=== PATIENT | female | born 1955 | race Caucasian/White ===

== ENCOUNTER 2018-04-11 10:49 | Emergency (ER) | payer OTHER, SELFPAY ==
[2018-04-11 10:58] VITALS: BP 187/116; PULSE 145; RESP 20; TEMP 36.9; O2SAT 100; BMI 26.1
--- NOTE | 2018-04-11 11:03 | ED.ARRPALP ---
HPI - Arrhythmia/Palpitations General Chief Complaint: Arrhythmia/Palpitations Stated Complaint: RACING HEART Time Seen by Provider: 04/11/18 10:59 Source: patient Mode of arrival: ambulatory Limitations: no limitations History of Present Illness HPI narrative: 63-year-old female sent over from her primary care doctor's office after during the evaluation the patient became acutely tachycardic. Patient states that she has never felt anything like this before. She states that she was sitting on the exam table in when her provider went to listen to her heart she felt like her heart started to race. Denies any chest pain. Denied any shortness of breath. States she was still having the symptoms at the time of my evaluation. No new medications. Related Data Home Medications Medication Instructions Recorded Confirmed No Known Home Medications 04/11/18 04/11/18 Allergies Allergy/AdvReac Type Severity Reaction Status Date / Time Penicillins Allergy Unknown Verified 04/11/18 11:14 hay fever Allergy Mild Uncoded 04/11/18 09:29 Review of Systems Constitutional Denies chills, Denies fatigue, Denies fever(s), Denies headache(s), Denies lethargy and Denies weakness ENT Ears, Nose, Mouth, and Throat: Denies vertigo, Denies dizziness and Denies headache(s) Cardiovascular Denies chest pain, Denies syncope, Denies irregular heart rhythm, Denies lightheadedness, Reports palpitations, Denies dyspnea and Denies dyspnea on exertion Respiratory Denies cough, Denies dyspnea, Denies dyspnea on exertion and Denies wheezing Gastrointestinal Gastrointestinal: Denies abdominal pain, Denies change in bowel habits, Denies diarrhea, Denies nausea and Denies vomiting Musculoskeletal Denies back pain, Denies muscle weakness, Denies numbness and Denies tingling Integumentary/Breasts Denies pruritus, Denies erythema, Denies rash and Denies wounds Neurologic Denies confusion, Denies vertigo, Denies dizziness, Denies syncope, Denies headache(s), Denies numbness, Denies tingling and Denies weakness Psychiatric Denies confusion Endocrine Denies fatigue, Denies flushing and Reports palpitations Hematologic/Lymphatic Denies easy bruising Allergic/Immunologic Denies wheezing [facility] Social History Smoking Status: Never smoker Exam Initial Vital Signs Initial Vital Signs: Vital Signs Temperature 98.5 F 04/11/18 10:58 Pulse Rate 145 H 04/11/18 10:58 Respiratory Rate 20 04/11/18 10:58 Blood Pressure 187/116 H 04/11/18 10:58 Pulse Oximetry 100 04/11/18 10:58 Resp Effort & Inspection: normal respiratory effort, able to speak in complete sentences, no respiratory distress and no use of accessory muscles Auscultation: clear to auscultation bilaterally, no rales, no rhonchi and no wheezes Cardio Rate: tachycardic Rhythm: regular rhythm Pulses: radial pulses present GI Inspection: non-distended Palpation: soft, no hepatosplenomegaly, No guarding, No pulsatile mass and No tender Auscultation: normal bowel sounds Skin General: no rashes or lesions noted, No jaundice and No petechiae Extrem General: full ROM, no clubbing, cyanosis or edema, no pedal edema and no calf tenderness Course Orders Ordered: ED Orders 04/11/18 11:04 XR chest 1V Stat EKG-12 Lead Stat 04/11/18 11:25 B Type Natriuretic Peptide Stat Complete Blood Count AUTO DIFF Stat Comprehensive Metabolic Panel Stat Lipase Stat Troponin I Stat 04/11/18 11:43 EKG-12 Lead Stat Discontinued Medications Sodium Chloride (Normal Saline 0.9%) 1,000 mls @ 1,000 mls/hr IV BOLUS ONE Stop: 04/11/18 12:03 Last Admin: 04/11/18 12:02 Dose: Vital Signs - 8 hr 04/11/18 12:06 04/11/18 13:22 Pulse Rate 84 99 H Respiratory Rate 12 21 Blood Pressure 123/78 H Blood Pressure [Left Arm] 110/84 H Pulse Oximetry 97 100 MDM - Arrhythmia/Palpitations Lab Data Attestation: I reviewed the patient's lab results. Result diagrams: 04/11/18 11:25 04/11/18 11:25 Lab Results 04/11/18 04/11/18 Range/Units 11:25 11:25 WBC 5.7 (4.5-11.0) X10^3/uL RBC 4.27 (4.0-5.2) X10^6/uL Hgb 14.0 (12.0-16.0) g/dL Hct 39.9 (36-46) % MCV 93.3 (80-100) fL MCH 32.7 (26-34) PG MCHC 35.0 (30-36) % RDW 11.7 (11.6-14.8) % Plt Count 199 (150-400) X10^3/uL Neut % (Auto) 61.9 (50-75) % Lymph % (Auto) 30.4 (25-40) % Allen % (Auto) 6.3 (3-14) % Eos % (Auto) 0.9 L (2-4) % Baso % (Auto) 0.5 (0-2) % Neut # (Auto) 3500 (2404-6291) /uL Sodium 143 (137-145) mmol/L Potassium 3.9 (3.4-5.1) mmol/L Chloride 104.0 (98-107) mmol/L Carbon Dioxide 27.0 (22-32) mmol/L BUN 14.0 (7-17) mg/dL Creatinine 0.80 (0.52-1.04) mg/dL Estimated GFR > 60.0 (>60) mL/min BUN/Creatinine Ratio 17.5 (6-22) Glucose 103 (80-110) mg/dL Calcium 9.7 (8.4-10.2) mg/dL Total Bilirubin 0.8 (0.2-1.3) mg/dL AST 27 (14-36) IU/L ALT 28 (9-52) IU/L Alkaline Phosphatase 72 (38-126) U/L Troponin I < 0.012 (0.01-0.034) ng/mL B-Natriuretic Peptide 33.3 (<100) Total Protein 7.6 (6.3-8.2) g/dL Albumin 4.5 (3.5-5.0) g/dL Globulin 3.1 (1.7-4.1) g/dL Albumin/Globulin Ratio 1.5 (1.0-2.8) Lipase 173 (23-300) U/L Imaging Data Chest x-ray: Radiologist's impression: PROCEDURE: XR CHEST 1V INDICATIONS: Palpitations TECHNIQUE: One view of the chest was acquired. COMPARISON: None. FINDINGS: Surgical changes and devices: None. Lungs and pleura: No pleural effusions or pneumothorax. Lungs are clear. Mediastinum: Mediastinal contours appear normal. Heart size is normal. Bones and chest wall: No suspicious bony lesions. Overlying soft tissues appear unremarkable. IMPRESSION: No acute cardiopulmonary abnormality ECG Data Attestation: I personally reviewed and interpreted this ECG as follows: Prior ECG tracings: not available for review Interpretation: EKG dated 1054 hr Sinus tachycardia Ventricular rate of 142 Normal axis Normal intervals Normal QRS Normal QTC Nonspecific ST T wave changes EKG timed 1149 hr Sinus rhythm Ventricular rate 84 Normal axis Normal intervals Normal QRS No ST T wave changes MDM Narrative Medical decision making narrative: Patient was asymptomatic except for the palpitations. Initially was tachycardic appears to be regular. Patient otherwise healthy. While here in the emergency department patient states that her symptoms gradually improved to the point that her heart rate was less than 80. Repeat EKG shows sinus rhythm. Electrolytes unremarkable. Chest x-ray unremarkable. Initial EKG somewhat concerning for atrial flutter however this is not definitive. Had a long discussion with patient regarding her symptoms. She was given a copy of her EKG is. She was instructed to contact her primary doctor for a follow-up to discuss the indication for further evaluation to include an echocardiogram and stress test. She was given return precautions. She expressed understanding and agreement with plan Discharge Plan Departure Patient Disposition: Home, Self-Care Clinical Impression: Palpitations Discharge Date/Time: 04/11/18 13:23 Interventions: ED Discharge Assessment Last Done: 04/11/18 13:22 Instructions: DI for Palpitations Activity Restrictions/Additional Instructions: Recommend that you follow up with her primary care doctor to discuss the indications for further evaluation to include an echocardiogram and stress test and potentially follow up with a microbiology technician. Return to the emergency department for any new symptoms, lightheadedness, chest pain, shortness of breath, or any other concerning symptoms Prescriptions: No Action No Known Home Medications RF: 0
--- NOTE | 2018-04-11 11:04 | DI.RAD.S_ITS ---
PROCEDURE: XR CHEST 1V INDICATIONS: Palpitations TECHNIQUE: One view of the chest was acquired. COMPARISON: None. FINDINGS: Surgical changes and devices: None. Lungs and pleura: No pleural effusions or pneumothorax. Lungs are clear. Mediastinum: Mediastinal contours appear normal. Heart size is normal. Bones and chest wall: No suspicious bony lesions. Overlying soft tissues appear unremarkable. IMPRESSION: No acute cardiopulmonary abnormality Dictated by: Joe Hurt M.D. on 04/11/2018 at 11:31 Approved by: Joe Hurt M.D. on 04/11/2018 at 11:31
[2018-04-11 11:26] VITALS: BP 135/87; PULSE 86; RESP 14; O2SAT 99
[2018-04-11 11:39] LABS: Add Manual Diff / Slide Review NO; Basophils Percent Auto 0.5 % (0-2); Eosinophils Percent Auto 0.9 % (2-4); Hematocrit 39.9 % (36-46); Lymphocytes Percent Auto 30.4 % (25-40); Mean Corpuscular Hemoglobin 32.7 PG (26-34); Mean Corpuscular Volume 93.3 fL (80-100); Monocytes Percent Auto 6.3 % (3-14); Neutrophils Absolute Auto 3500 /uL (3000-5900); Neutrophils Percent Auto 61.9 % (50-75); Platelet Count 199 X10^3/uL (150-400); Red Blood Cell Count 4.27 X10^6/uL (4.0-5.2); Red Cell Distribution Width 11.7 % (11.6-14.8); White Blood Cell Count 5.7 X10^3/uL (4.5-11.0)
[2018-04-11 11:50] LABS: Alanine Aminotransferase 28 IU/L (9-52); Albumin 4.5 g/dL (3.5-5.0); Albumin Globulin Ratio 1.5 (1.0-2.8); Alkaline Phosphatase 72 U/L (38-126); Aspartate Aminotransferase 27 IU/L (14-36); BUN Creatinine Ratio 17.5 (6-22); Bilirubin Total 0.8 mg/dL (0.2-1.3); Calcium 9.7 mg/dL (8.4-10.2); Estimated Glomerular Filt Rate > 60.0 mL/min (>60); Globulin 3.1 g/dL (1.7-4.1); Glucose 103 mg/dL (80-110); HEMOLYSIS < 15 (0-50); Lipase 173 U/L (23-300); Potassium 3.9 mmol/L (3.4-5.1); Sodium 143 mmol/L (137-145); Total Protein 7.6 g/dL (6.3-8.2)
[2018-04-11 11:59] LABS: B Type Natriuretic Peptide 33.3 (<100)
[2018-04-11 12:03] LABS: Troponin I < 0.012 ng/mL (0.01-0.034)
[2018-04-11 12:06] VITALS: BP 110/84; PULSE 84; RESP 12; O2SAT 97
[2018-04-11 13:22] VITALS: BP 123/78; PULSE 99; RESP 21; O2SAT 100
== END 2018-04-11 13:23 | disposition home or self-care (01) ==
PROVIDERS: Emergency Provider Emergency Medicine; PCP Family Medicine
DX: R00.2 Palpitations (principal)
CPT/HCPCS: 36415; 36591; 71045; 80053; 83690; 83880; 84484; 85025; 93005; 93041; 99283; 99285

== ENCOUNTER → 2022-03-19 06:32 | Outpatient (CLI) | payer OTHER, SELFPAY ==
[2022-03-19 08:23] LABS: Add Manual Diff / Slide Review NO; Basophils Absolute Auto 0 /uL (0-100); Basophils Percent Auto 0.5 % (0-2); Eosinophils Absolute Auto 100 /uL (0-450); Hematocrit 37.6 % (36-46); Hemoglobin 13.1 g/dL (12.0-16.0); Lymphocytes Absolute Auto 1500 /uL (1100-4500); Lymphocytes Percent Auto 37.1 % (25-40); Mean Corpuscular HGB Conc 34.8 % (30-36); Mean Corpuscular Hemoglobin 32.4 PG (26-34); Mean Corpuscular Volume 93.2 fL (80-100); Monocytes Absolute Auto 300 /uL (0-900); Monocytes Percent Auto 6.6 % (3-14); Neutrophils Absolute Auto 2200 /uL (1500-7000); Neutrophils Percent Auto 53.8 % (50-75); Platelet Count 264 X10^3/uL (150-400); Red Blood Cell Count 4.04 X10^6/uL (4.0-5.2); Red Cell Distribution Width 11.7 % (11.6-14.8); White Blood Cell Count 4.1 X10^3/uL (4.5-11.0)
[2022-03-19 08:35] LABS: Alanine Aminotransferase 30 IU/L (<35); Albumin Globulin Ratio 1.4 (1.0-2.8); Alkaline Phosphatase 81 U/L (38-126); Aspartate Aminotransferase 29 IU/L (14-36); BUN Creatinine Ratio 16.9 (6-22); Bilirubin Total 0.6 mg/dL (0.2-1.3); Blood Urea Nitrogen 13 mg/dL (7-17); Calcium 9.3 mg/dL (8.4-10.2); Carbon Dioxide 28 mmol/L (22-32); Chloride 104 mmol/L (98-107); Cholesterol 232 mg/dL (140-199); Estimated Glomerular Filt Rate > 60 mL/min (>60); Globulin 2.8 g/dL (1.7-4.1); Glucose 93 mg/dL (80-110); HDL Cholesterol 46 mg/dL (40-60); HEMOLYSIS < 15 (0-50); LDL Cholesterol Calculated 166 mg/dL (<100); Potassium 4.4 mmol/L (3.4-5.1); Sodium 141 mmol/L (137-145); Total Protein 6.8 g/dL (6.3-8.2); Triglycerides 101 mg/dL (35-150)
[2022-03-19 09:05] LABS: TSH w/ Reflex to FT4 2.47 uIU/mL (0.47-4.68)
== END ==
PROVIDERS: PCP Family Medicine; Referring Provider Family Medicine; Visit Provider Family Medicine
DX: Z00.00 Encounter for general adult medical examination without abnormal findings (principal); K63.5 Polyp of colon; Z13.220 Encounter for screening for lipoid disorders; Z13.6 Encounter for screening for cardiovascular disorders; R53.83 Other fatigue
CPT/HCPCS: 36415; 80053; 80061; 84443; 85025

== ENCOUNTER → 2022-04-22 09:09 | Outpatient (CLI) | payer MEDICARE, OTHER, SELFPAY ==
[2022-04-22 10:19] LABS: COVID19 -Nasal RAPID Negative (Negative)
== END ==
PROVIDERS: PCP Family Medicine; Visit Provider Surgery
DX: Z20.822 Contact with and (suspected) exposure to COVID-19 (principal); Z01.812 Encounter for preprocedural laboratory examination
CPT/HCPCS: 87635; C9803

== ENCOUNTER 2022-04-23 11:39 | Day surgery (SDC) | payer MEDICARE, OTHER, SELFPAY ==
[2022-04-23 11:51] VITALS: BP 156/92; PULSE 103; RESP 16; TEMP 37.3; O2SAT 99; BMI 24.2
[2022-04-23] MEDS: LACTATED RINGERS 1,000 ML 200 ML IV (11:57)
--- NOTE | 2022-04-23 12:18 | PM.HP.1 ---
History of Present Illness History of Present Illness Date Patient Seen: 04/23/22 Time Patient Seen: 12:18 Chief complaint: SCREENING COLONOSCOPY Narrative: Smita is a 67-year-old woman who is due for colonoscopy. She believes her last colonoscopy was about 12 years ago and polyps were removed. She has no known family history of colon cancer. Patient History Medical History (Updated 04/23/22 @ 12:19 by Hua Sood MD) Allergic rhinitis Cataracts, bilateral (2017) Chickenpox Chronic back pain Colon polyps (2008) Fibroids (2007) Fractures (~2007) History of melanoma (~2009) Irregular heart beat (~2018) Measles Melanoma (2009) Mumps Preventative health care Vitreous floaters of both eyes Surgical History (Updated 04/21/22 @ 21:43 by Sarah Johnson) Anesthesia History of lumpectomy of left breast (~1989) History of removal of skin mole History of surgery Hx of hysterectomy (2007) Family & Social History Family History (Updated 04/21/22 @ 21:44 by Sarah Johnson) Father Hypertension Bladder cancer Mother Heart disease Dementia Mental health problem Social History: household members spouse Tobacco & Substance use: Smoking Status Never smoker alcohol intake frequency a few times a month Substance Use Type does not use Meds Home Medications and Allergies Home Medications Medication Instructions Recorded Confirmed Type pravastatin 20 mg tablet 20 mg PO DAILY #90 tab 04/03/22 04/23/22 Rx sodium sul 1.479 gram-potas ch See Rx Instructions PO PER PKG DIR 04/06/22 Rx 0.188 gram-magnes sul 0.225 gram #24 tab tablet (Sutab) Allergies Allergy/AdvReac Type Severity Reaction Status Date / Time Penicillins Allergy Unknown Verified 03/18/22 09:57 hay fever Allergy Mild Uncoded 03/18/22 09:57 Exam Vital Signs (past 8 hours): - 04/23/22 11:51 Temperature 99.1 F Pulse Rate 103 H Respiratory Rate 16 Blood Pressure 156/92 H Pulse Oximetry 99 Oxygen Delivery Method Room Air Const General: healthy appearing Resp Effort & Inspection: normal respiratory effort Assessment & Plan Assessment and plan (1) History of colon polyps: Status: Acute Plan 67-year-old woman with a history of colon polyps. We reviewed the risks, benefits and rationale of colonoscopy for colon cancer screening. She would like to proceed. COVID-19 COVID-19 status: Negative Result date/Date tested (Pos, Neg/Pending): 04/22/22 Time Spent With Patient Critical Care time: I spent a total of [] minutes of critical care time on this patient's care today; this time is exclusive of procedural time.
[2022-04-23] MEDS: MIDAZOLAM 5 MG/5 ML VIAL 8 MG IV (12:45)
[2022-04-23] MEDS: fentaNYL 250 MCG/5 ML INJ 200 MCG IV (12:45)
--- NOTE | 2022-04-23 12:51 | PM.OP.COLON ---
Operative Date/Time/Diagnoses Date of procedure: 04/23/22 Time of procedure: 12:51 Pre-op diagnosis: Personal history of colon polyps Post-op diagnosis: same Procedure & Clinicians Study performed: Colonoscopy Same procedure as scheduled: Yes Procedure Notes Procedure in detail: Surgeon: Hua Sood MD Procedure: The patient was brought to the endoscopy suite, placed in left lateral decubitus position. The patient was connected to monitoring devices. A time-out was performed. Sedation was administered. Once the patient was adequately sedated, a digital rectal exam was performed and was normal. The scope was then inserted and advanced to the cecum where the appendiceal orifice was identified and photographed. The scope was then slowly withdrawn over greater than 6 minutes. Mucosa was thoroughly inspected. There were no polyps. There was air multiple diverticula of the left colon greatest in the sigmoid colon. The scope was retroflexed in the rectum. There were internal hemorrhoids but no other abnormalities. The scope was straightened and removed. The patient was awakened and brought to recovery. Versed: 8 mg Fentanyl: 200 mcg EBL: 0 Findings: Diverticulosis, greatest in the sigmoid colon Scope withdrawal time: 8 Sedation minutes: 22 Post-procedure Recommendations: Colonoscopy in 10 years Disposition: PACU
[2022-04-23 12:54] VITALS: BP 100/68; PULSE 75; RESP 16; TEMP 36.7; O2SAT 95
[2022-04-23 13:00] VITALS: BP 106/66; PULSE 72; RESP 16; TEMP 36.8; O2SAT 98
[2022-04-23 13:05] VITALS: BP 110/70; PULSE 78; RESP 16; TEMP 36.8; O2SAT 98
== END 2022-04-23 13:30 | disposition home or self-care (01) ==
PROVIDERS: PCP Family Medicine; Referring Provider Surgery; Visit Provider Surgery
PROC: 0DJD8ZZ Inspection of Lower Intestinal Tract, Via Natural or Artificial Opening Endoscopic (ICD-10-PCS; CPT 45378; principal; 2022-04-23 12:45)
DX: Z12.11 Encounter for screening for malignant neoplasm of colon (principal); Z86.010 Personal history of colon polyps; K57.30 Diverticulosis of large intestine without perforation or abscess without bleeding; K64.8 Other hemorrhoids
CPT/HCPCS: G0105; 99152; J2250; J3010

== ENCOUNTER → 2022-09-03 06:39 | Outpatient (CLI) | payer MEDICARE, OTHER, SELFPAY ==
[2022-09-03 08:37] LABS: Alanine Aminotransferase 30 IU/L (<35); Albumin 4.3 g/dL (3.5-5.0); Albumin Globulin Ratio 1.5 (1.0-2.8); Alkaline Phosphatase 49 U/L (38-126); Aspartate Aminotransferase 31 IU/L (14-36); Bilirubin Total 1.2 mg/dL (0.2-1.3); Blood Urea Nitrogen 17 mg/dL (7-17); Calcium 9.5 mg/dL (8.4-10.2); Carbon Dioxide 29 mmol/L (22-32); Chloride 103 mmol/L (98-107); Cholesterol 266 mg/dL (140-199); Estimated Glomerular Filt Rate > 60 mL/min (>60); Globulin 2.8 g/dL (1.7-4.1); Glucose 96 mg/dL (80-110); HDL Cholesterol 74 mg/dL (40-60); HEMOLYSIS 18 (0-50); LDL Cholesterol Calculated 175 mg/dL (<100); Sodium 137 mmol/L (137-145); Total Protein 7.1 g/dL (6.3-8.2); Triglycerides 85 mg/dL (35-150)
== END ==
PROVIDERS: PCP Family Medicine; Referring Provider Family Medicine; Visit Provider Family Medicine
DX: E78.00 Pure hypercholesterolemia, unspecified (principal)
CPT/HCPCS: 36415; 80053; 80061

== ENCOUNTER → 2022-09-24 11:31 | Outpatient (CLI) | payer MEDICARE, OTHER, SELFPAY ==
--- NOTE | 2022-09-24 11:33 | DI.MG.S_ITS ---
BILATERAL DIGITAL SCREENING MAMMOGRAM 3D/2D WITH CAD: 09/24/2022 CLINICAL: Routine screening. Comparison is made to exams dated: 10/25/2009 mammogram and 10/05/2008 mammogram - [facility]. Both breasts are heterogeneously dense, which may obscure small masses (category c / 51-75% glandular tissue). Current study was also evaluated with a Computer Aided Detection (CAD) system. No significant masses, calcifications, or other findings are seen in either breast. There has been no significant interval change. IMPRESSION: NEGATIVE There is no mammographic evidence of malignancy. A 1 year screening mammogram is recommended. Based on the Tyrer Cuzick model (a risk assessment model) the patient's lifetime risk is 10.8% and her 10 year risk is 5.3%. According to the ACR, ACS, and NCCN guidelines, an annual breast MRI exam along with mammogram is recommended if the patient's lifetime risk is 20% or greater. This exam was interpreted at Station ID: [id number]. NOTE: For mammograms, a report in lay terms will be sent to the patient. Approximately 15% of breast malignancies will not be visualized mammographically. In the management of a palpable breast mass, a negative mammogram must not discourage biopsy of a clinically suspicious lesion. Electronically Signed By: Akhli Plasencia M.D., jr/maday:09/24/2022 18:00:51 letter sent: Normal Exam ACR BI-RADS Category 1: Negative [id number]
== END ==
PROVIDERS: PCP Family Medicine; Referring Provider Family Medicine; Visit Provider Family Medicine
DX: Z12.31 Encounter for screening mammogram for malignant neoplasm of breast (principal)
CPT/HCPCS: 77063; 77067

== ENCOUNTER 2022-12-28 03:22 | Emergency (ER) | payer MEDICARE, OTHER, SELFPAY ==
[2022-12-28 03:30] VITALS: BP 169/83; PULSE 95; RESP 18; TEMP 36.8; O2SAT 98; BMI 24.2
--- NOTE | 2022-12-28 03:38 | ED.GENADULT ---
HPI - General Adult General Chief complaint: Extremity Injury, Upper Stated complaint: lacerations rt arm from fall Time Seen by Provider: 12/28/22 03:34 History of Present Illness HPI narrative: 67-year-old woman with a history of hyperlipidemia returning from [place] and vacation was checking into a hotel on mechanical fall and landed with her left arm against the edge of a table sustaining a significant flap like laceration over the left forearm and a bruise to the dorsal surface of her thumb. There is no bony abnormality she is full range of motion at all joints. Her did a beautiful job of initial 1st aid and she comes in for further repair. She is completely neurovascularly intact. Has no other complaints. Related Data Previous Rx's Medication Instructions Recorded pravastatin 40 mg tablet 40 mg PO DAILY #90 tabs 09/04/22 Allergies Allergy/AdvReac Type Severity Reaction Status Date / Time Penicillins Allergy Unknown Verified 09/04/22 15:29 hay fever Allergy Mild Uncoded 09/04/22 15:29 Review of Systems Review of Systems Narrative: Remainder of complete review of systems is otherwise unremarkable except for that included in the HPI. Patient History Medical History Allergic rhinitis Cataracts, bilateral (2018) Chickenpox Chronic back pain Colon polyps (2008) Fibroids (2007) Fractures (~2007) History of melanoma (~2009) Hyperlipemia Irregular heart beat (~2018) Measles Melanoma (2009) Mumps Preventative health care Vitreous floaters of both eyes Surgical History Anesthesia History of lumpectomy of left breast (~1989) History of removal of skin mole History of surgery Hx of hysterectomy (2007) Family History Father Hypertension Bladder cancer Mother Heart disease Dementia Mental health problem Social History household members: spouse Smoking Status: Never smoker Smoking Status: Never smoker alcohol intake frequency: a few times a month Substance Use Type: does not use Exam Initial Vital Signs Initial Vital Signs: General: Alert appropriate in no acute distress Respiratory: Able to speak in full sentences, no obvious respiratory distress Skin: No obvious rashes, warm and dry Neurologic: Grossly intact no obvious asymmetries or abnormalities Psych: appropriate insight and affect, cooperative Extremity: Insurance Verification Representative upper extremity has a 15 cm laceration. The 1st 10 cm are deep flap and the final 5 cm are superficial skin tear. She has some bruising to the dorsal surface of the thumb but full range of motion and is neurovascularly intact. Do not suspect bony or ligamentous injury there Procedures Laceration Repair Right forearm: Time of procedure: 04:17 Site: upper extremity Side (If applicable): right Size (cm): 15 Description: flap and irregular Depth: simple, single layer (Large flap through to fascia but does not penetrate fascia and does not extend to muscle) Local Anesthetic: lidocaine 2% Amount of anesthesia used (mL): 8 Pre-repair: wound explored, irrigated extensively and deep structures intact Skin layer closed with: other (Horizontal mattress nylon sutures x5 are used to reapproximate the deeper dermal edges then Steri-Strips were used to reapproximate the thinner epidermis layer along the length of the 15 cm laceration) Subcutaneous layer closed with: vicryl Subcutaneous layer suture size: 4-0 Number of sutures: 4 Technique: other (Horizontal mattress) Medical Decision Making MDM Narrative Medical decision making narrative: CC: Large forearm laceration after mechanical fall. New diagnosis, self-limited Corroborating data: Data collected from: patient, Medical records reviewed: Primary care notes reviewed Differential considered: Skin flap, fascial defects, muscular laceration, bony injury, broken thumb Exam documented above, pertinent findings include: 10 cm large flap of the forearm with additional 5 cm more superficial skin tear. Thumb with bruising but no evidence of bony or tendon injuries Treatments: Laceration repair, tetanus updated Discussion: Multilevel closure for the large flap laceration with excellent aesthetic result. Will recommend 2 weeks prior to Steri-Strips and sutures being removed. Clearly reviewed signs and symptoms of infection. Recommended 5 days of Keflex. Regarding the bruise to the thumb there does not appear to be any ligamentous injury and I do not believe splinting is going to be required. With full range of motion and no tenderness with pronation or supination we chose to not do any x-rays of the forearm. Disposition: see below, along with detailed discharge instructions that have been reviewed with patient as well as indications for ED re-evaluation and additional outpatient follow up Discharge Plan Departure Patient Disposition: Home Clinical Impression: Finger sprain, Laceration of upper extremity Instructions: DI for Laceration Repair -- Complex Activity Restrictions/Additional Instructions: Thank you for coming in today I am sorry this was the ending to your [facility] vacation but hopefully all is going to heal beautifully well. The large laceration was closed in 3 layers. Is big enough that infection is a risk and I have given you a prescription for Keflex to be taken 3 times a day for 5 days. Your tetanus shot was updated today You can get the wound wet simply padded dry. Please keep a light dressing over the wound to try to keep the Steri-Strips in place for best aesthetic results. If you are noticing increasing pain or swelling that needs to be re-evaluated. If you are noticing significant pain with finger movement this could indicate a deeper infection in the forearm and needs evaluation as well I am going to suggest the Steri-Strips and the superficial sutures come out on or about January 11 If you find that you are getting worse or develop any new symptoms, please feel free to return to the emergency department for further evaluation. Prescriptions: No Action pravastatin 40 mg tablet 40 mg PO DAILY Qty: 90 1RF Referrals: Paul Donohue DO [Primary Care Provider] - Stand Alone Forms: Patient Portal/API
[2022-12-28] MEDS: TET,DIPH,PERTUSS(ACELL),VAC/PF 0.5 ML SYRINGE IM (04:15)
[2022-12-28] MEDS: BACITRACIN OINT 0.9 GM PCKT 5 APPLIC TOP (04:16)
[2022-12-28 04:43] VITALS: BP 151/82; PULSE 53; RESP 18; O2SAT 98
== END 2022-12-28 04:47 | disposition home or self-care (01) ==
PROVIDERS: Emergency Provider Emergency Medicine; PCP Family Medicine
DX: S51.812A Laceration without foreign body of left forearm, initial encounter (principal); S63.601A Unspecified sprain of right thumb, initial encounter; W22.8XXA Striking against or struck by other objects, initial encounter; Z23 Encounter for immunization
CPT/HCPCS: 12005; 90471; 99283; 99284; 90715